=== PATIENT | male | born 1980 | race Caucasian/White ===

== ENCOUNTER 2016-07-05 21:53 | Emergency (ER) | payer OTHER ==
[~2016-07-05] VITALS: Ht 182.9 cm; Wt 98.9 kg
[~2016-07-05 21:53] MED LIST: CLARITIN 1010 MG/TAB PO; DESYREL 50MG50 MG PO; IRON325 M2 PO; NEURONTIN300 MG/CAP PO; PEPCID 20MG TAB20 MG PO; TOPROL XL 25MG25 MG PO; WELLBUTRIN XL300 M1 PO; ZOFRAN 4MG T4 MG/TAB PO; ZOLOFT 100MG100 MG PO
[2016-07-05 22:05] VITALS: TEMP 97.9
[2016-07-05] MEDS ORDERED: NORCO 325 MG-51 TAB PO (22:12)
[2016-07-05 22:49] LABS: PH 6 (5-8); SQUAMOUS EPITHELIAL 0-2 /hpf; URINE APPEARANCE Clear; URINE BACTERIA None Seen /hpf; URINE BILIRUBIN Negative (NEGATIVE); URINE BLOOD Negative (NEGATIVE); URINE COLOR Yellow; URINE GLUCOSE Negative (NEGATIVE); URINE KETONE Negative (NEGATIVE); URINE RBC 0-2 /hpf; URINE UROBILINOGEN Negative (NEGATIVE); URINE WBC 0-2 /hpf
[2016-07-05] MEDS ORDERED: FLOMAX 0.40.4 MG/CAP PO (23:39)
[2016-07-05 23:45] VITALS: BP 133/79; PULSE 91
[2016-08-31] MEDS ORDERED: TYLENOL 325MG325 MG PO (08:27)
[2016-08-31] MEDS ORDERED: INDOCIN 25MG CA25 MG PO (08:28)
[2016-08-31] MEDS ORDERED: PAXIL 20MG20 MG PO (08:29)
== END 2016-07-05 23:46 | disposition home or self-care (01) ==
LOC: COL.ER 21:53
PROVIDERS: Emergency Medicine
DX: R33.9 Retention of urine, unspecified (principal); K59.00 Constipation, unspecified; Z98.890 Other specified postprocedural states

== ENCOUNTER → 2016-07-16 | Outpatient (CLI) | payer OTHER ==
[~2016-07-16] MED LIST changes: +FLOMAX 0.40.4 MG/CAP PO; +INDOCIN 25MG CA25 MG PO; +NORCO 325 MG-51 TAB PO; +PAXIL 20MG20 MG PO; +TYLENOL 325MG325 MG PO
== END ==
LOC: MHCPAIN 08:48
DX: G89.29 Other chronic pain (principal); M47.27 Other spondylosis with radiculopathy, lumbosacral region
CPT/HCPCS: G0463

== ENCOUNTER → 2016-07-25 | Outpatient (CLI) | payer OTHER | LOC: MHCPAIN 10:58 | DX: M47.817 Spondylosis without myelopathy or radiculopathy, lumbosacral region (principal) ==

== ENCOUNTER → 2016-07-31 | Outpatient (CLI) | payer OTHER | LOC: MHCPAIN 12:33 | DX: G89.29 Other chronic pain (principal); M47.817 Spondylosis without myelopathy or radiculopathy, lumbosacral region; M54.16 Radiculopathy, lumbar region | CPT/HCPCS: G0463 ==

== ENCOUNTER → 2016-08-08 | Outpatient (CLI) | payer OTHER | LOC: MHCPAIN 12:21 | DX: M47.817 Spondylosis without myelopathy or radiculopathy, lumbosacral region (principal) ==

== ENCOUNTER → 2016-08-31 | Emergency (ER) | payer OTHER ==
[~2016-08-31] VITALS: Ht 185.4 cm; Wt 100.0 kg
[2016-08-31 08:22] VITALS: BP 123/91; PULSE 104; TEMP 98.3
[2016-08-31 11:57] LABS: CHLAMYDIA/TRACH by PCR Male NOT DETECTED
[2016-08-31 11:58] LABS: Neisseria Gon by PCR Male NOT DETECTED
== END ==
LOC: COL.ER 08:19
PROVIDERS: Physician Assistant
DX: S70.361A Insect bite (nonvenomous), right thigh, initial encounter (principal); W57.XXXA Bitten or stung by nonvenomous insect and other nonvenomous arthropods, initial encounter; Z20.2 Contact with and (suspected) exposure to infections with a predominantly sexual mode of transmission; F41.9 Anxiety disorder, unspecified

== ENCOUNTER → 2016-09-16 | Outpatient (CLI) | payer OTHER | LOC: MHCPAIN 12:11 | DX: G89.29 Other chronic pain (principal); M47.817 Spondylosis without myelopathy or radiculopathy, lumbosacral region; M54.10 Radiculopathy, site unspecified | CPT/HCPCS: G0463 ==

== ENCOUNTER → 2016-09-26 | Outpatient (CLI) | payer OTHER | LOC: MHCPAIN 10:33 | DX: M47.817 Spondylosis without myelopathy or radiculopathy, lumbosacral region (principal) | CPT/HCPCS: J1100; J2250; J3010 ==

== ENCOUNTER → 2016-10-03 | Outpatient (CLI) | payer OTHER | LOC: MHCPAIN 08:18 | DX: M47.817 Spondylosis without myelopathy or radiculopathy, lumbosacral region (principal) | CPT/HCPCS: J1100; J2250; J3010 ==

== ENCOUNTER → 2016-11-04 | Outpatient (CLI) | payer OTHER | LOC: MHCPAIN 08:11 | DX: G89.29 Other chronic pain (principal); M47.27 Other spondylosis with radiculopathy, lumbosacral region | CPT/HCPCS: G0463 ==